=== PATIENT | male | born 1995 | race African-American/Black ===

== ENCOUNTER 2021-07-29 18:35 | Emergency (ER) | payer SELFPAY ==
--- NOTE | 2021-07-29 22:11 | ER ---
Nurse's Notes [facility] Name: Danny Knowles Age: 26 yrs Sex: Male : 1995 Arrival Date: 07/29/2021 Time: 18:39 Bed Waiting Private MD: Diagnosis: Presentation: 07/29 18:58 Chief complaint: Patient states: migraine began last night along with vomiting, reports ll1 emesis and headache today. a e work. Coronavirus screen: Vaccine status: Patient reports receiving the 2nd dose of the covid vaccine. Ebola Screen: Patient negative for fever greater than or equal to 101.5 degrees Fahrenheit, and additional compatible Ebola Virus Disease symptoms. Initial Sepsis Screen: Does the patient meet any 2 criteria? No. Patient's initial sepsis screen is negative. Does the patient have a suspected source of infection? Yes: No. Patient's initial sepsis screen is negative. Risk Assessment: Do you want to hurt yourself or someone else? Patient reports no desire to harm self or others. Onset of symptoms was July 28, 2021. 18:58 Method Of Arrival: Ambulatory ll1 18:58 Acuity: DOM 4 ll1 Historical: - Allergies: 19:02 No Known Allergies; ll1 - Home Meds: 19:02 ibuprofen 200 mg Oral cap [Active]; ll1 - PMHx: 19:02 Migraines; ll1 - PSHx: 19:02 None; ll1 - Immunization history:: Adult Immunizations Client reports receiving the 2nd dose of the Covid vaccine. - Social history:: Smoking status: Reported history of juuling and/or vaping. Vital Signs: 18:58 BP 114 / 49; Pulse 77; Resp 16; Temp 98.2(O); Pulse Ox 99% ; Pain 7/10; ll1 ED Course: 18:39 Patient arrived in ED. ds1 19:02 Triage completed. ll1 22:10 Patient's name was called from ER lobby. No response. Unable to locate patient. Will bb disposition as left without being seen by a provider. Administered Medications: No medications were administered Outcome: 22:11 Patient left the ED. bb Signatures: Nancy Mills ds1 Tea Beckett RN RN bb Oskar Hurtado RN RN ll1
[2021-07-29 22:24] VITALS: BP 114/49; TEMP 98.2; O2SAT 99
== END 2021-07-29 22:11 | disposition left against medical advice (07) ==
LOC: ER 18:35
DX: G43.909 Migraine, unspecified, not intractable, without status migrainosus (principal); Z53.21 Procedure and treatment not carried out due to patient leaving prior to being seen by health care provider
CPT/HCPCS: 99281

== ENCOUNTER 2022-03-14 13:43 | Emergency (ER) | payer SELFPAY ==
[2022-03-14 15:39] LABS: Absolute Lymphocytes (CBC) 2.1 K/uL (0.7-4.9); Hematocrit 42.9 % (39.6-49.0); Lymphocytes % 24.5 % (15.3-44.8); MCV 91.6 fL (80-100); MPV 9.5 fL (7.6-11.3); RBC Red Blood Cell Count 4.68 M/uL (4.33-5.43)
[2022-03-14 15:49] LABS: Protime INR 1.12
[2022-03-14 15:53] LABS: ALT/SGPT 14 U/L (16-61); AST/SGOT 8 U/L (15-37); Albumin 3.5 g/dL (3.4-5.0); Alkaline Phosphatase 60 U/L (45-117); BUN Blood Urea Nitrogen 8 mg/dL (7-18); Bicarbonate 27 mmol/L (21-32); Bilirubin Total 0.3 mg/dL (0.2-1.0); Glomerular Filtration Rate 113 ml/min (=/>90); Glucose Level 96 mg/dL (74-106); Potassium 3.4 mmol/L (3.5-5.1); Protein, Total 7.3 g/dL (6.4-8.2); Sodium Level 141 mmol/L (136-145); Troponin High Sensitivity 4.7 pg/mL (<58.9)
[2022-03-14 16:03] LABS: Bilirubin Direct < 0.1 mg/dL (0-0.2)
[2022-03-14] MEDS ORDERED: KETOROLAC 30 MG/ML INJ ONE (17:05)
[2022-03-14] MEDS ORDERED: NA CHLORIDE 0.9% 1,000 ML ONE (17:06)
--- NOTE | 2022-03-14 17:31 | ER ---
Nurse's Notes [facility] Name: Danny Knowles Age: 27 yrs Sex: Male : 1995 Arrival Date: 03/14/2022 Time: 13:44 Bed 7 Private MD: Diagnosis: Chest pain, unspecified Presentation: 03/14 13:45 Chief complaint: EMS states: [facility], was arrested after taking ph unknown amount of xanax, woke up in shelter and c/o chest pain, was having anxiety and hallucinations, denies SI, is no longer in police custody. Coronavirus screen: Vaccine status: Patient reports being unvaccinated. Ebola Screen: No symptoms or risks identified at this time. Initial Sepsis Screen: Does the patient meet any 2 criteria? No. Patient's initial sepsis screen is negative. Does the patient have a suspected source of infection? No. Patient's initial sepsis screen is negative. Risk Assessment: Do you want to hurt yourself or someone else? Patient reports no desire to harm self or others. Onset of symptoms was March 14, 2022. 13:45 Method Of Arrival: EMS: [facility] 13:45 Acuity: DOM 3 ph Triage Assessment: 14:45 General: Appears in no apparent distress. Behavior is anxious, crying, fussy. Pain: ph Denies pain. Neuro: Level of Consciousness is awake, alert, obeys commands, Oriented to person, place, situation. Cardiovascular: Capillary refill < 3 seconds in bilateral fingers Patient's skin is warm and dry. Respiratory: Airway is patent Respiratory effort is even, unlabored, Respiratory pattern is regular, symmetrical. Derm: Skin is healthy with good turgor, Skin is pink, warm \T\ dry. Historical: - Allergies: 14:43 No Known Allergies; ph - PMHx: 14:43 Migraines; ph - Immunization history:: Adult Immunizations unknown. - Social history:: Smoking status: Reported history of juuling and/or vaping. - Family history:: not pertinent. - Hospitalizations: : No recent hospitalization is reported. Screenin:44 [facility] ED Fall Risk Assessment (Adult) History of falling in the last 3 months, ph including since admission No falls in past 3 months (0 pts) Confusion or Disorientation Yes (5 pts) Intoxicated or Sedated Yes (3 pts) Impaired Gait No (0 pts) Mobility Assist Device Used No (0 pt) Altered Elimination No (0 pt) Score/Fall Risk Level 3 or more points = High Risk Oriented to surroundings, Maintained a safe environment. Abuse screen: Denies threats or abuse. Denies injuries from another. Nutritional screening: No deficits noted. Tuberculosis screening: No symptoms or risk factors identified. Assessment: 15:10 Reassessment: Patient appears in no apparent distress at this time. Patient and/or db family updated on plan of care and expected duration. Pain level reassessed. General: Appears in no apparent distress. Behavior is cooperative, anxious, drowsy, quiet. Pain: Denies pain. Neuro: Level of Consciousness is obeys commands, lethargic, Speech is slurred. Cardiovascular: No deficits noted. Respiratory: No deficits noted. Airway is patent Respiratory effort is even, unlabored, Respiratory pattern is regular, symmetrical. 16:00 Reassessment: Patient appears in no apparent distress at this time. No changes from db previously documented assessment. Patient and/or family updated on plan of care and expected duration. Pain level reassessed. 16:47 Reassessment: Patient appears in no apparent distress at this time. Patient and/or db family updated on plan of care and expected duration. Pain level reassessed. patient is sleeping. 18:40 Reassessment: Patient appears in no apparent distress at this time. PATIENT IS MORE db AWAKE. PLACED PATIENT'S PHONE ON SITE PLANNER SO THAT HE CAN CALL FAMILY FOR RIDE. Vital Signs: 13:45 BP 117 / 80; Pulse 98; Resp 18; Temp 97.8; Pulse Ox 99% on R/A; Weight 99.79 kg; Height ph 6 ft. 4 in. (193.04 cm); 14:00 BP 119 / 85; Pulse 86; Resp 18; Pulse Ox 100% on R/A; db 15:00 BP 106 / 86; Pulse 81; Resp 16; Pulse Ox 100% on R/A; db 15:30 BP 102 / 87; Pulse 103; Resp 20; Pulse Ox 100% ; db 16:00 BP 115 / 88; Pulse 69; Resp 16; Pulse Ox 100% on R/A; db 17:03 BP 116 / 98; Pulse 70; Resp 18; Pulse Ox 100% on R/A; db 18:30 BP 120 / 95; Pulse 72; Resp 16; Pulse Ox 100% on R/A; db 13:45 Body Mass Index 26.78 (99.79 kg, 193.04 cm) ph ED Course: 13:44 Patient arrived in ED. rn 13:44 Arnav Hall MD is Attending Physician. rn 14:39 Krista Alejo, RN is Primary Nurse. ph 14:43 Triage completed. ph 14:44 Arm band placed on Patient placed in an exam room. ph 14:45 Patient has correct armband on for positive identification. Bed in low position. Call ph light in reach. Side rails up X 1. Pulse ox on. NIBP on. 15:12 Inserted saline lock: 20 gauge in right antecubital area, using aseptic technique. db Blood collected. 16:08 EKG done, by ED staff. bc6 19:16 No provider procedures requiring assistance completed. IV discontinued, intact, kd3 bleeding controlled, No redness/swelling at site. Pressure dressing applied. Administered Medications: 17:10 Drug: NS 0.9% 1000 ml Route: IV; Rate: 1000 ml; Site: right antecubital; db 18:18 Follow up: Response: No adverse reaction; IV Status: Completed infusion; IV Intake: db 1000ml 19:02 Not Given (Patient Refused): Ketorolac 30 mg IVP once db Medication: 14:46 VIS not applicable for this client. ph Intake: 18:18 IV: 1000ml; Total: 1000ml. db Outcome: 17:30 Discharge ordered by . rn 19:17 Discharged to home ambulatory. kd3 19:17 Condition: stable 19:17 Discharge instructions given to patient, Instructed on discharge instructions, follow up and referral plans. Demonstrated understanding of instructions, follow-up care. 19:18 Patient left the ED. kd3 Signatures: Arnav Hall MD MD rn Hall, Patricia, EDDIE RN Shavonne Paez RN RN kd3 Yeni Amezquita RN RN db Lizy Munson [facility]
--- NOTE | 2022-03-14 17:31 | EDPHYS ---
Physician Documentation [facility] Name: Danny Knowles Age: 27 yrs Sex: Male : 1995 Arrival Date: 03/14/2022 Time: 13:44 Bed 7 Private MD: ED Physician Arnav Hall HPI: 03/14 14:51 This 27 yrs old Black Male presents to ER via EMS with complaints of chest pain. rn 14:51 The patient or guardian reports chest pain that is located primarily in the chest rn diffusely. The pain does not radiate. Associated signs and symptoms: Pertinent negatives: abdominal pain, shortness of breath, syncope, vomiting. The chest pain is described as sharp, stabbing. Duration: The patient or guardian reports multiple episodes. Modifying factors: The symptoms are alleviated by nothing. the symptoms are aggravated by nothing. Severity of pain: At its worst the pain was moderate in the emergency department the pain is unchanged. The patient has not experienced similar symptoms in the past. The patient has not recently seen a physician. EMS reports pt arrested for possession, possibly xanax, took something, woke up in nursing home today with chest pain. No trauma. Patient reports not sure what he took. No medical problems. No other complaints. . Historical: - Allergies: 14:43 No Known Allergies; ph - PMHx: 14:43 Migraines; ph - Immunization history:: Adult Immunizations unknown. - Social history:: Smoking status: Reported history of juuling and/or vaping. - Family history:: not pertinent. - Hospitalizations: : No recent hospitalization is reported. ROS: 14:51 Constitutional: Negative for fever, chills, and weight loss, Eyes: Negative for injury, rn pain, redness, and discharge, Neck: Negative for injury, pain, and swelling, Cardiovascular: Negative for palpitations, and edema, Respiratory: Negative for shortness of breath, cough, wheezing, and pleuritic chest pain, Abdomen/GI: Negative for abdominal pain, nausea, vomiting, diarrhea, and constipation, Back: Negative for injury and pain, MS/Extremity: Negative for injury and deformity, Skin: Negative for injury, rash, and discoloration, Neuro: Negative for headache, weakness, numbness, tingling, and seizure. Exam: 14:51 Constitutional: This is a well developed, well nourished patient who is awake, alert, rn holding chest, tearful, crying Head/Face: Normocephalic, atraumatic. Cardiovascular: Regular rate and rhythm. No pulse deficits. Respiratory: No increased work of breathing, no retractions or nasal flaring. Abdomen/GI: Soft, non-tender Skin: Warm, dry MS/ Extremity: Pulses equal, no cyanosis. Neuro: Awake and alert, GCS 15 16:14 ECG was reviewed by the Attending Physician. rn Vital Signs: 13:45 BP 117 / 80; Pulse 98; Resp 18; Temp 97.8; Pulse Ox 99% on R/A; Weight 99.79 kg; Height ph 6 ft. 4 in. (193.04 cm); 14:00 BP 119 / 85; Pulse 86; Resp 18; Pulse Ox 100% on R/A; db 15:00 BP 106 / 86; Pulse 81; Resp 16; Pulse Ox 100% on R/A; db 15:30 BP 102 / 87; Pulse 103; Resp 20; Pulse Ox 100% ; db 16:00 BP 115 / 88; Pulse 69; Resp 16; Pulse Ox 100% on R/A; db 17:03 BP 116 / 98; Pulse 70; Resp 18; Pulse Ox 100% on R/A; db 18:30 BP 120 / 95; Pulse 72; Resp 16; Pulse Ox 100% on R/A; db 13:45 Body Mass Index 26.78 (99.79 kg, 193.04 cm) ph MDM: 13:45 Patient medically screened. rn 16:48 Differential diagnosis: acute pericarditis, anxiety, chest wall pain, costochondritis, rn esophagitis, pericarditis, pleurisy, pneumothorax. Data reviewed: vital signs, nurses notes, lab test result(s), radiologic studies, plain films, and as a result, I will discharge patient. Counseling: I had a detailed discussion with the patient and/or guardian regarding: the historical points, exam findings, and any diagnostic results supporting the discharge/admit diagnosis. 17:30 Special discussion: Based on the patient's history, exam, and Dx evaluation, there is rn no indication for emergent intervention or inpatient Tx. It is understood by the patient/guardian that if the Sx's persist or worsen they need to return immediately for re-evaluation. I discussed with the patient/guardian in detail that at this point there is no indication for admission to the hospital. It is understood, however, that if the symptoms persist or worsen the patient needs to return immediately for re-evaluation. 03/14 13:45 Order name: Acetaminophen; Complete Time: 16:17 rn 03/14 13:45 Order name: Basic Metabolic Panel; Complete Time: 16:17 rn 03/14 13:45 Order name: CBC with Diff; Complete Time: 16: rn 03/14 13:45 Order name: ETOH Level; Complete Time: 16: rn 03/14 13:45 Order name: Hepatic Function; Complete Time: 16: rn 03/14 13:45 Order name: PT-INR; Complete Time: 16: rn 03/14 13:45 Order name: Ptt, Activated; Complete Time: 16: rn 03/14 13:45 Order name: Salicylate; Complete Time: 16:17 rn 03/14 13:45 Order name: EKG; Complete Time: 13:46 rn 03/14 13:45 Order name: EKG - Nurse/Tech; Complete Time: 16:07 rn 03/14 13:45 Order name: Troponin High Sensitivity; Complete Time: 16:17 rn 03/14 13:45 Order name: IV Saline Lock; Complete Time: 15:57 rn 03/14 13:45 Order name: Labs collected and sent; Complete Time: 15:57 rn EC:14 Rate is 80 beats/min. Rhythm is regular. QRS [place] is Normal. IA interval is normal. QRS rn interval is normal. QT interval is normal. No Q waves. T waves are Normal. No ST changes noted. Clinical impression: Normal ECG. Interpreted by me. Reviewed by me. Administered Medications: 17:10 Drug: NS 0.9% 1000 ml Route: IV; Rate: 1000 ml; Site: right antecubital; db 18:18 Follow up: Response: No adverse reaction; IV Status: Completed infusion; IV Intake: db 1000ml 19:02 Not Given (Patient Refused): Ketorolac 30 mg IVP once db Disposition Summary: 03/14/22 17:30 Discharge Ordered Location: Home rn Problem: new rn Symptoms: have improved rn Condition: Stable rn Diagnosis - Chest pain, unspecified rn Followup: rn - With: Private Physician - When: As needed - Reason: Recheck today's complaints, Re-evaluation by your physician Discharge Instructions: - Discharge Summary Sheet rn - Nonspecific Chest Pain, Adult rn Forms: - Medication Reconciliation Form rn - Thank You Letter rn - Antibiotic returned case inspector - Prescription Opioid Use rn Signatures: Dispatcher [employer] Arnav Pugh MD MD rn Hall, Patricia, RN RN Yeni Carrillo RN RN db
[2022-03-14 19:22] VITALS: TEMP 97.8
[2022-03-14 19:23] VITALS: O2SAT 100
[2022-03-14 19:29] VITALS: BP 120/95
--- NOTE | 2022-03-16 19:08 | EKG ---
Test Date: 2022-03-14 Test Time: 16:02:06 Flotation Tender: YEIMI MEASUREMENT RESULTS: Intervals: Rate: 80 MT: 150 QRSD: 100 QT: 402 QTc: 463 [place]app[place]: P: 51 MT: 150 QRS: 33 T: 48 INTERPRETIVE STATEMENTS: Normal sinus rhythm Normal ECG No previous ECG available for comparison Electronically Signed On 03-16-22 19:06:59 ANALYTICS SENIOR MANAGER by Shimon Chapman
== END 2022-03-14 19:18 | disposition home or self-care (01) ==
LOC: ER 13:43
DX: R07.9 Chest pain, unspecified (principal)
CPT/HCPCS: 36415; 80048; 80076; 80320; 80329; 84484; 85025; 85610; 85730; 93005; 96360; 99284; J7030

== ENCOUNTER 2023-08-19 11:03 | Emergency (ER) | payer SELFPAY ==
[2023-08-19 11:32] LABS: Absolute Eosinophils 0.1 K/uL (0-0.5); Absolute Lymphocytes (CBC) 1.3 K/uL (0.7-4.9); Absolute Monocytes 0.5 K/uL (0.1-1.3); Absolute Neutrophil 4.7 K/uL (1.8-8.0); Basophils % 0.4 % (0-1.3); Eosinophils % 1.7 % (0-4.4); Hematocrit 41.6 % (39.6-49.0); Hemoglobin 13.5 g/dL (13.6-17.9); Lymphocytes % 19.5 % (15.3-44.8); MCH 29.9 pg (27.0-35.0); MCHC 32.4 g/dL (32.0-36.0); MCV 92.3 fL (80-100); MPV 8.8 fL (7.6-11.3); Monocytes % 7.9 % (3.3-12.3); Neutrophils % 70.5 % (41.7-73.7); Platelets 276 thou/uL (152-406); Red Cell Distribution Width 14.1 % (12.1-15.2)
[2023-08-19] MEDS ORDERED: NA CHLORIDE 0.9% 1,000 ML ONE (11:39)
[2023-08-19] MEDS ORDERED: levETIRAcetam 500 MG TAB ONE (11:39)
[2023-08-19 11:48] LABS: Anion Gap 5.8 mEq/L (5.0-15.0); Potassium 3.8 mEq/L (3.5-5.1)
--- NOTE | 2023-08-19 13:02 | EDPHYS ---
Physician Documentation [facility] Name: Danny Knowles Age: 28 yrs Sex: Male : 1995 Arrival Date: 08/19/2023 Time: 11:03 Bed 25 Private MD: ED Physician Sameer Tran HPI: 08/18 11:14 This 28 yrs old Black Male presents to ER via Unassigned with complaints of seizure. ms3 11:14 28-year-old male with past medical history of seizures presents to the emergency ms3 department via [facility] after having a witnessed seizure by his girlfriend. Patient's girlfriend stated to EMS that patient is noncompliant with his seizure medications. Patient was alert and oriented x 4 with EMS however confused to details as to why EMS was there. EMS noted patient's heart rate to be tacky. Patient's blood glucose level 108. Patient states he feels like he typically does after seizures. He denies any alleviating or inciting factors.. Historical: - Allergies: 11:38 No Known Allergies; cm10 - PMHx: 11:38 Seizure; cm10 - Immunization history:: Adult Immunizations up to date. - Infectious Disease History:: Denies. - Social history:: Smoking status: unknown. ROS: 11:14 Constitutional: Negative for fever, and chills. Neck: Negative for injury, pain, and ms3 swelling, Cardiovascular: Negative for chest pain, and palpitations. Respiratory: Negative for shortness of breath, cough, wheezing, and pleuritic chest pain, Abdomen/GI: Negative for abdominal pain, nausea, vomiting, diarrhea, and constipation, MS/Extremity: Negative for injury and deformity, Skin: Negative for injury, rash, and discoloration, 11:14 Neuro: Positive for seizure activity, Exam: 11:14 Constitutional: This is a well developed, well nourished patient who is awake, alert, ms3 and in no acute distress. Head/Face: Normocephalic, atraumatic. Neck: Trachea midline, no cervical lymphadenopathy. Supple, full range of motion without nuchal rigidity, or vertebral point tenderness. No Meningismus. Chest/axilla: Normal chest wall appearance and motion. Nontender with no deformity. Cardiovascular: Regular rate and rhythm with a normal S1 and S2. No gallops, murmurs, or rubs. Normal PMI, no JVD. No pulse deficits. Respiratory: Lungs have equal breath sounds bilaterally, clear to auscultation and percussion. No rales, rhonchi or wheezes noted. No increased work of breathing, no retractions or nasal flaring. Abdomen/GI: Soft, non-tender, with normal bowel sounds. No distension or tympany. No guarding or rebound. No evidence of tenderness throughout. Skin: Warm, dry with normal turgor. Normal color with no rashes, no lesions, and no evidence of cellulitis. MS/ Extremity: Pulses equal, no cyanosis. Neurovascular intact. Full, normal range of motion. Neuro: Awake and alert, GCS 15, oriented to person, place, time, and situation. Cranial nerves II-XII grossly intact. Motor strength 5/5 in all extremities. Sensory grossly intact. Cerebellar exam normal. Normal gait. Vital Signs: 11:30 BP 122 / 87; Pulse 88; Resp 17; Pulse Ox 100% on R/A; cm10 12:00 BP 133 / 92; Pulse 85; Resp 18; Pulse Ox 100% on R/A; cm10 12:30 BP 128 / 82; Pulse 86; Resp 18; Pulse Ox 100% on R/A; cm10 13:00 BP 109 / 81; Pulse 79; Resp 18; Pulse Ox 100% on R/A; cm10 MDM: 11:14 Differential diagnosis: seizure, Medication non-compliance vs Drug abuse. ms3 11:32 Patient medically screened. ms3 13:01 Data reviewed: vital signs, nurses notes, lab test result(s), and as a result, I will ms3 discharge patient. I considered the following discharge prescriptions or medication management in the emergency department Medications were administered in the Emergency Department. See MAR. Historians other than the Patient: EMS: [facility]. Counseling: I had a detailed discussion with the patient and/or guardian regarding the historical points, exam findings, and any diagnostic results supporting the discharge/admit diagnosis, lab results, the need for outpatient follow up, to return to the emergency department if symptoms worsen or persist or if there are any questions or concerns that arise at home. Special discussion: I discussed with the patient/guardian in detail that at this point there is no indication for admission to the hospital. It is understood, however, that if the symptoms persist or worsen the patient needs to return immediately for re-evaluation. ED course: Discussed labs with patient and his mother. Patient's mother states patient has only had seizures when withdrawing from recreational drugs. Patient is not currently on medications for seizures. On reevaluation patient is alert and oriented x 4, in no apparent distress, nontoxic-appearing, without complaints. Patient and his mother state they would like to be discharged at this time. Patient to follow-up with Dr. Ruth in 2 to 3 days. Return precautions discussed include worsening symptoms, or any other concerns.. 08/18 11:17 Order name: CBC with Diff; Complete Time: 11:50 ms3 08/18 11:17 Order name: BMP; Complete Time: :50 ms3 Administered Medications: 11:46 Drug: Keppra PO 1000 mg PO once Route: PO; cm10 12:50 Follow up: Response: No adverse reaction cm10 11:46 Drug: NS 0.9% IV 1000 ml IV at 1 bolus Per protocol; 1000 mL bolus Route: IV; Rate: 1 cm10 bolus; Site: left antecubital; 12:50 Follow up: Response: No adverse reaction; IV Status: Completed infusion; IV Intake: cm10 1000ml Disposition Summary: 08/19/23 13:01 Discharge Ordered Notes: Location: Home ms3 Condition: Stable ms3 Diagnosis - Other seizures ms3 Followup: ms3 - With: Jose Ruth MD - When: 2 - 3 days - Reason: Recheck today's complaints Discharge Instructions: - Discharge Summary Sheet ms3 - Seizure, Adult ms3 Forms: - Medication Reconciliation Form ms3 - Antibiotic Education ms3 - Prescription Opioid Use ms3 - Patient Portal Instructions ms3 - Leadership Thank You Letter ms3 Signatures: Dispatcher [employer] Sameer Aguilera DO DO ms3 Kendra Ma, RN RN cm10
--- NOTE | 2023-08-19 13:02 | ER ---
Nurse's Notes [facility] Name: Danny Knowles Age: 28 yrs Sex: Male : 1995 Arrival Date: 08/19/2023 Time: 11:03 Bed 25 Private MD: Diagnosis: Other seizures Presentation: 08/18 11:15 Chief complaint: EMS states: witnessed seizure by gf , + hx of seizures , noncompliant iw with meds. Coronavirus screen: At this time, the client does not indicate any symptoms associated with coronavirus-19. Ebola Screen: Patient negative for fever greater than or equal to 101.5 degrees Fahrenheit, and additional compatible Ebola Virus Disease symptoms Patient denies exposure to infectious person. Patient denies travel to an Ebola-affected area in the 21 days before illness onset. No symptoms or risks identified at this time. Initial Sepsis Screen: Does the patient meet any 2 criteria? No. Patient's initial sepsis screen is negative. Does the patient have a suspected source of infection? No. Patient's initial sepsis screen is negative. Risk Assessment: Do you want to hurt yourself or someone else? Patient reports no desire to harm self or others. Onset of symptoms was August 19, 2023. 11:15 Method Of Arrival: EMS: [facility] iw 11:15 Acuity: DOM 2 iw Historical: - Allergies: 11:38 No Known Allergies; cm10 - PMHx: 11:38 Seizure; cm10 - Immunization history:: Adult Immunizations up to date. - Infectious Disease History:: Denies. - Social history:: Smoking status: unknown. Screenin:02 [facility] ED Fall Risk Assessment (Adult) History of falling in the last 3 months, cm10 including since admission Yes- physiologic fall (2 pts) Confusion or Disorientation No (0 pts) Intoxicated or Sedated No (0 pts) Impaired Gait No (0 pts) Mobility Assist Device Used No (0 pt) Altered Elimination No (0 pt) Score/Fall Risk Level 0 - 2 = Low Risk Oriented to surroundings, Maintained a safe environment, Hourly rounding (assess needs \T\ fall precautionary measures) done. Abuse screen: Denies threats or abuse. Denies injuries from another. Nutritional screening: No deficits noted. Tuberculosis screening: No symptoms or risk factors identified. Assessment: 11:45 General: Pt states that he wants to go home. Provider made aware.. cm10 11:46 General: Appears in no apparent distress. comfortable, Behavior is calm, cooperative. cm10 Pain: Denies pain. Neuro: No deficits noted. Level of Consciousness is awake, alert, obeys commands, Oriented to person, place, time, situation, Appropriate for age Seizure activity reported prior to arrival. Cardiovascular: No deficits noted. Rhythm is sinus rhythm. Respiratory: No deficits noted. Airway is patent Respiratory effort is even, unlabored, Respiratory pattern is regular, symmetrical. Derm: No deficits noted. Skin is healthy with good turgor, Skin is pink, warm \T\ dry. Musculoskeletal: No deficits noted. Range of motion: intact in all extremities. 13:00 Reassessment: Patient appears in no apparent distress at this time. No changes from cm10 previously documented assessment. Patient and/or family updated on plan of care and expected duration. Pain level reassessed. Patient is alert, oriented x 3, equal unlabored respirations, skin warm/dry/pink. Vital Signs: 11:30 BP 122 / 87; Pulse 88; Resp 17; Pulse Ox 100% on R/A; cm10 12:00 BP 133 / 92; Pulse 85; Resp 18; Pulse Ox 100% on R/A; cm10 12:30 BP 128 / 82; Pulse 86; Resp 18; Pulse Ox 100% on R/A; cm10 13:00 BP 109 / 81; Pulse 79; Resp 18; Pulse Ox 100% on R/A; cm10 ED Course: 11:06 Patient arrived in ED. bd 11:08 Sameer Tran DO is Attending Physician. ms3 11:36 Ofelia Aburto, RN is Primary Nurse. iw 11:37 Kendra Ma, RN is Primary Nurse. cm10 11:40 Triage completed. iw 12:02 Patient has correct armband on for positive identification. Bed in low position. Call cm10 light in reach. Side rails up X2. Provided Education on: ER process and procedures.. 13:01 Jose Ruth MD is Referral Physician. ms3 13:22 No provider procedures requiring assistance completed. IV discontinued, intact, cm10 bleeding controlled, No redness/swelling at site. Pressure dressing applied. 13:23 Arm band placed on. cm10 Administered Medications: 11:46 Drug: Keppra PO 1000 mg PO once Route: PO; cm10 12:50 Follow up: Response: No adverse reaction cm10 11:46 Drug: NS 0.9% IV 1000 ml IV at 1 bolus Per protocol; 1000 mL bolus Route: IV; Rate: 1 cm10 bolus; Site: left antecubital; 12:50 Follow up: Response: No adverse reaction; IV Status: Completed infusion; IV Intake: cm10 1000ml Medication: 12:02 VIS not applicable for this client. cm10 Intake: 12:50 IV: 1000ml; Total: 1000ml. cm10 Outcome: 13:01 Discharge ordered by . ms3 13:23 Discharged to home via wheelchair, with family, cm10 13:23 Condition: good 13:23 Discharge instructions given to patient, family, Instructed on discharge instructions, follow up and referral plans. Demonstrated understanding of instructions, follow-up care, 13:23 Patient left the ED. cm10 Signatures: Jenifer Milton Irene, RN RN iw Sims, Marcus, DO DO ms3 Kendra Ma RN RN cm10
[2023-08-19 13:38] VITALS: BP 109/81; O2SAT 100
== END 2023-08-19 13:23 | disposition home or self-care (01) ==
LOC: ER 11:03
DX: G40.89 Other seizures (principal)
CPT/HCPCS: 36415; 80048; 85025; 96360; 99284; J7030